=== PATIENT | male | born 1985 | race Caucasian/White ===

== ENCOUNTER 2021-03-22 13:55 | Outpatient (CLI) | payer OTHER, SELFPAY ==
--- NOTE | ~2021-03-22 | XR_ITS ---
EXAMINATION: XR shoulder LT min 2V DATE: 03/22/2021 14:17 INDICATION: Left shoulder pain TECHNIQUE: AP internally and externally rotated, AP oblique externally rotated and transscapular Y vi ews of the left shoulder were obtained. COMPARISON: None FINDINGS: Old healed left clavicle diaphyseal fracture with minimal residual deformity. Alignment is otherwise normal. No acute fracture. Minimal glenohumeral and acromioclavicular osteoarthritis. Soft tissues ar e unremarkable. Visualized portions of the left lung are clear. IMPRESSION: Minimal left acromioclavicular and glenohumeral osteoarthritis. No acute osseous abnormality. Reviewed, dictated and finalized at location A. IMPRESSION: Minimal left acromioclavicular and glenohumeral osteoarthritis. No acute osseou s abnormality.
== END 2021-03-22 13:56 | disposition home or self-care (01) ==
LOC: CHSIMG 13:59
PROVIDERS: PCP Family Medicine; Visit Provider Family Medicine
DX: M25.512 Pain in left shoulder (principal)
CPT/HCPCS: 73030

== ENCOUNTER 2021-03-30 09:51 | Outpatient (RCR) | payer OTHER, SELFPAY ==
--- NOTE | 2021-03-30 11:09 | PTOPEVAL ---
Thank you for referring Nnamdi Gorman II to [facility].? The patient is scheduled to be seen for therapy? __2__x/week for 8 visits. Please review, sign, date and return this plan of care [place]. I agree with and certify that the following plan of care is medically necessary. Referring Physician Date Admitting Provider: Attending Provider: Ramin Candelaria MD Referring Provider: *PT Outpatient Evaluation Start: 03/30/21 10:07 Freq: Status: Active Protocol: Document 03/30/21 10:07 ORIN (Rec: 03/30/21 11:06 ORIN [email or web address]) Therapy Assessment Status Assessment Status Assessment Status Evaluation Evaluation Information Problem Diagnosis 12/21/20 Subjective Information Pt. reports that he had no Query Text:As Reported By Patient/ incident that brought on this Family shoulder pain. He states that shoulder pain has been worsening since Dec. He describes pain in the lateral brachial region and anterior shoulder. He reports that he has trouble reaching overhead, behind the back and to the back of the head. he reports that pain disrupts his sleep at night. He states that his goal is to improve shoulder mobility and decrease shoulder pain. 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 Activity of Daily Living Ability Independent Indoor/Home Mobility Independent Community Mobility Independent Stairs Ability Independent Functional Cognition (Planning, Shopping Independent , Taking Medications) Cooking Yes Cleaning Yes Laundry Yes Shopping Yes Driving Yes Pain Assessment Pain Scale Pain Scale Used Numeric (1 - 10) Self Report Pain Assessment Left Shoulder(s) Reported Pain Level 1 Pain Frequency Continuous Lowest Pain Intensity 1 Greatest Pain Intensity 6 Pain Aggravating Factors Exercise/Activity,Lifting Pain Score Pain Score 1: Self Report Interventions Used Interventions Used By Clinicians Electrical Stimulation, Exercise,Heat Upper Extremity Range of Motion Scapular/ Shoulder R
--- NOTE | 2021-04-20 14:16 | PCPTNOTE ---
On 04/20/21, the student, [Cheryl Encarnacion, SPT], provided care and completed Cognitive Code documentation on this patient. I have reviewed the student's documentation and agree with the findings.
--- NOTE | 2021-06-07 14:51 | PCPTNOTE ---
Mr. Gorman attended a total of 5 treatment sessions from 03/30/21 to 04/23/21. He has failed to return to the clinic and has not contacted the clinic regarding his status. He will be discharged from our care. Refer to last daily note for pt. discharge status. Delgado Walden, MPT
== END 2021-04-23 15:31 | disposition home or self-care (01) ==
LOC: CHSPT 09:51
PROVIDERS: PCP Family Medicine; Visit Provider Family Medicine
DX: M25.512 Pain in left shoulder (principal)
CPT/HCPCS: 97014; 97110; 97161; 97530; G0283

== ENCOUNTER 2021-12-27 13:51 | Outpatient (CLI) | payer OTHER, SELFPAY ==
--- NOTE | ~2021-12-27 | XR_ITS ---
XR toe 1st RT min 2V DATE: 12/27/2021 14:15 INDICATION: First digit swelling, redness. Diabetes. TECHNIQUE: 3 views COMPARISON: None FINDINGS: There is soft tissue swelling of the first digit. There is ill-defined linear lucency of the tuft of the distal phalanx with areas of cortical interrup tion of the tuft. The findings are suspicious for osteomyelitis. Differential diagnoses includes frac ture. Consider correlation with three-phase radiographic bone scan. No radiopaque soft tissue foreign body or subcutaneous emphysema. No fracture or dislocation is noted otherwise. IMPRESSION: Lucency and cortical interruptions of the tuft of the distal phalanx, suggesting osteomye litis Reviewed, dictated and finalized at location A. POLISHER IMPRESSION: Lucency and cortical interruptions of the tuft of the distal phalan x, suggesting osteomyelitis
--- NOTE | ~2021-12-27 | XR_ITS ---
XR foot LT min 3V DATE: 12/27/2021 14:17 INDICATION: Left foot pain. Diabetic wound on plantar aspect of first metatarsal TECHNIQUE: 4 views COMPARISON: None FINDINGS: Mild posterior calcaneal enthesopathy. No fracture or dislocation, periosteal reaction or bone destruction. No erosive change. 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
== END 2021-12-27 13:52 | disposition home or self-care (01) ==
LOC: CHSIMG 13:56
PROVIDERS: PCP Family Medicine; Visit Provider Family Medicine
DX: M79.672 Pain in left foot (principal); R22.41 Localized swelling, mass and lump, right lower limb
CPT/HCPCS: 73630; 73660

== ENCOUNTER 2022-01-17 12:05 | Outpatient (CLI) | payer OTHER, SELFPAY ==
[2022-01-17 13:07] LABS: Estimated Glomerular Filt Rate > 60
== END 2022-01-17 12:06 | disposition home or self-care (01) ==
LOC: CHSLAB 12:08
PROVIDERS: PCP Family Medicine; Visit Provider Podiatrist
DX: M86.171 Other acute osteomyelitis, right ankle and foot (principal); E11.59 Type 2 diabetes mellitus with other circulatory complications
CPT/HCPCS: 99199

== ENCOUNTER 2022-01-18 09:09 | Outpatient (CLI) | payer OTHER, SELFPAY ==
--- NOTE | ~2022-01-18 | MR_ITS ---
EXAMINATION: MR foot RT wo/w con DATE: 01/18/2022 11:45 INDICATION: Osteomyelitis. TECHNIQUE: Magnetic resonance imaging (MRI) of the right foot was performed without and with 20 mL Mu ltiHance intravenous contrast. Sequences included sagittal STIR FSE and T1-weighted FSE and short-axi s and long-axis T1-weighted FSE and T2-weighted FS FSE. Postcontrast sequences included short-axis an d long-axis T1-weighted FS FSE. COMPARISON: Right great toe radiographs 12/27/2021 FINDINGS: Bone alignment is normal. There is a fracture of tuft of first distal phalanx with bone mar row edema involving the tuft. The overlying subcutaneous fat is normal. No specific evidence of infec tion. There is mild osteoarthritis of first metatarsophalangeal joint. Lisfranc ligament is normal. T he flexor and extensor tendons are normal. IMPRESSION: 1. Subacute fracture of tuft of first distal phalanx. Reviewed, dictated and finalized at location A. 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
== END 2022-01-18 09:10 | disposition home or self-care (01) ==
LOC: CHSIMG 09:10
PROVIDERS: PCP Family Medicine; Visit Provider Podiatrist
DX: M86.171 Other acute osteomyelitis, right ankle and foot (principal); E11.59 Type 2 diabetes mellitus with other circulatory complications
CPT/HCPCS: 73720; A9577